=== PATIENT | male | born 1980 | race Caucasian/White ===

== ENCOUNTER 2017-11-11 13:31 | Emergency (ER) | payer MEDICAID ==
[~2017-11-11] VITALS: Ht 175.3 cm; Wt 191.9 kg
[2017-11-11 14:06] VITALS: Ht 175.3 cm; Wt 191.9 kg
[2017-11-11 15:33] VITALS: BP 155/64
== END 2017-11-11 15:18 | disposition home or self-care (01) ==
LOC: ED 13:31
DX: M10.072 Idiopathic gout, left ankle and foot (principal); R20.2 Paresthesia of skin; I10 Essential (primary) hypertension